=== PATIENT | male | born 1985 | race Caucasian/White ===

== ENCOUNTER 2016-08-03 18:16 | Emergency (ER) | payer SELFPAY ==
[2016-08-03] MEDS ORDERED: Naproxen 500 MG TAB ONE (19:37)
[2016-08-03] MEDS ORDERED: Ondansetron ODT 4 MG TAB ONE (19:37)
[2016-08-03] MEDS ORDERED: HYDROcodone/Acetaminophen 10/325 mg Tablet ONE (19:37)
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
== END 2016-08-03 21:50 | disposition home or self-care (01) ==
LOC: MADERS 18:16
DX: S02.32XA Fracture of orbital floor, left side, initial encounter for closed fracture (principal); F17.210 Nicotine dependence, cigarettes, uncomplicated; Y04.8XXA Assault by other bodily force, initial encounter
CPT/HCPCS: 70450; 70486; Q0162

== ENCOUNTER 2016-09-11 03:10 | Emergency (ER) | payer SELFPAY ==
[2016-09-11] MEDS ORDERED: Benzonatate 100 MG CAP ONE (03:44)
[2016-09-11] MEDS ORDERED: Dexamethasone 4 MG TAB ONE (03:44)
== END 2016-09-11 03:45 | disposition home or self-care (01) ==
LOC: MADERS 03:10
DX: J20.9 Acute bronchitis, unspecified (principal); F17.210 Nicotine dependence, cigarettes, uncomplicated
CPT/HCPCS: J8540

== ENCOUNTER 2018-03-07 16:31 | Emergency (ER) | payer SELFPAY ==
[2018-03-07] MEDS ORDERED: Azithromycin 250 MG TAB ONE (17:28)
[2018-03-07] MEDS ORDERED: cefTRIAXone\\ROCEPHIN 1 GM VIAL ONE (17:28)
[2018-03-07 17:38] LABS: Bilirubin Small (Negative); Blood, Urine Negative (Negative); Clarity Clear (Clear); Glucose, Urine (Dipstick) Negative (Negative); Leukocyte Negative (Negative); Nitrite Negative (Negative); Protein, Urine (Dipstick) 30 mg/dL (Neg-Trace); Urobilinogen 0.2 mg/dL (0.2-1.0); pH, Urine 5.5 (5.0-9.0)
[2018-03-07 17:40] LABS: Specific Gravity, Urine 1.031 (1.002-1.036)
[2018-03-07 17:48] LABS: Bacteria/HPF Rare-Few HPF (None Seen); Crystals/HPF RARE AMORPH URATES HPF (Negative); RBC/HPF None Seen HPF (0-3); Sperm/HPF Rare HPF (None Seen); Squamous Epithelial 0-3 HPF (0-3); WBC/HPF None Seen HPF (0-3)
[2018-03-08 21:46] LABS: Chlamydia by PCR Not Detected (NotDetected); GC by PCR Not Detected (NotDetected)
== END 2018-03-07 17:50 | disposition home or self-care (01) ==
LOC: MADERS 16:31
DX: A64 Unspecified sexually transmitted disease (principal); F17.210 Nicotine dependence, cigarettes, uncomplicated; Z79.899 Other long term (current) drug therapy
CPT/HCPCS: 81003; 81015; 87491; 87591; 96372; J0696; J2001

== ENCOUNTER 2020-02-16 13:57 | Emergency (ER) | payer SELFPAY | END 2020-02-16 14:30 | disposition home or self-care (01) | LOC: MADERS 13:57 | DX: H61.23 Impacted cerumen, bilateral (principal); L03.211 Cellulitis of face; F17.210 Nicotine dependence, cigarettes, uncomplicated | CPT/HCPCS: 99283 ==

== ENCOUNTER 2020-12-18 00:18 | Emergency (ER) | payer SELFPAY ==
[2020-12-18 00:47] LABS: #Basophils 0.1 thou/uL (0.0-0.2); #Eosinphils 0.2 thou/uL (0.0-0.7); #Lymphocytes 2.1 thou/uL (1.20-3.40); #Monocytes 0.9 thou/uL (0.11-0.59); #Neutrophils 6.5 thou/uL (1.40-6.50); %Eosinophils 2.1 % (0.0-10.0); %Lymphocytes 21.2 % (21.0-51.0); %Monocytes 9.7 % (0.0-10.0); %Neutrophils 66.1 % (42.0-75.0); Hemoglobin 16.1 g/dL (14.0-18.0); Mean Corpuscular HGB CONC 32.2 g/dL (32.0-36.0); Mean Corpuscular Hemoglobin 29.6 pg (27.0-31.0); Mean Corpuscular Volume 91.9 fL (78.0-98.0); Mean Platelet Volume 6.1 fL (7.4-10.4); Platelet Count 347 thou/uL (130-400); RBC Distribution Width 12.1 % (11.5-14.5); Red Blood Cell (RBC) Count 5.43 mill/uL (4.70-6.10); White Blood Cell (WBC) Count 9.8 thou/uL (4.8-10.8)
[2020-12-18 00:58] LABS: Bilirubin Negative (Negative); Blood, Urine Negative (Negative); Clarity Clear (Clear); Glucose, Urine (Dipstick) Negative (Negative); Ketone, Urine Negative (Negative); Leukocyte Negative (Negative); Nitrite Negative (Negative); Protein, Urine (Dipstick) Negative (Neg-Trace); Urobilinogen 0.2 mg/dL (Less than 2)
[2020-12-18 00:59] LABS: Specific Gravity, Urine 1.025 (1.005-1.030)
[2020-12-18 01:03] LABS: ALT (SGPT) 17 U/L (8-55); AST (SGOT) 18 U/L (5-34); Alkaline Phosphatase 112 U/L (40-110); Anion Gap 15 mmol/L (10-20); BUN (Urea Nitrogen) 21 mg/dL (8.9-20.6); Bilirubin, Total 0.3 mg/dL (0.2-1.2); Calc. Creatinine Clearance 0 mL/min (70-130); Carbon Dioxide 24 mmol/L (22-29); Chloride 103 mmol/L (98-107); Globulin 3.7 g/dL (2.4-3.5); Glucose 103 mg/dL (70-105); Potassium 4.2 mmol/L (3.5-5.1); Protein, Total 7.7 g/dL (6.0-8.3); Sodium 138 mmol/L (136-145)
[2020-12-18 01:04] LABS: Amphetamine Detected (NotDetected); Barbiturates Screen Not Detected (NotDetected); Benzodiazepine Screen Not Detected (NotDetected); Cocaine Metabolite Screen Not Detected (NotDetected); Medtox Control Line Valid? VALID (VALID); Methadone Not Detected (NotDetected); Methamphetamine Detected (NotDetected); Opiate Screen Not Detected (NotDetected); Oxycodone Screen Not Detected (NotDetected); Phencyclidine (PCP) Not Detected (NotDetected); THC/Cannabinoid Screen Detected (NotDetected); Tricyclic Screen Not Detected (NotDetected)
[2020-12-18] MEDS ORDERED: cefTRIAXone\\ROCEPHIN 1 GM VIAL ONE (04:12)
[2020-12-18] MEDS ORDERED: Azithromycin 500 MG VIAL ONE (04:12)
[2020-12-18] MEDS ORDERED: Lidocaine 1% 20 ML MDV ONE (04:12)
[2020-12-18] MEDS ORDERED: Azithromycin 250 MG TAB ONE (04:14)
== END 2020-12-18 04:25 | disposition home or self-care (01) ==
LOC: MADERS 00:18
DX: N45.1 Epididymitis (principal); K40.90 Unilateral inguinal hernia, without obstruction or gangrene, not specified as recurrent; F17.210 Nicotine dependence, cigarettes, uncomplicated
CPT/HCPCS: 36415; 76870; 80053; 80306; 81003; 85025; 93976; 96372; J0456; J0696